=== PATIENT | female | born 1980 | race Two or more races ===

== ENCOUNTER 2016-10-10 23:00 | Emergency (ER) | payer MEDICAID ==
[~2016-10-10] VITALS: Ht 167.6 cm; Wt 86.2 kg
[2016-10-10 23:23] VITALS: BP 153/94
== END 2016-10-10 23:30 | disposition left against medical advice (07) ==
LOC: ER 23:00
DX: R05 Cough (principal); R06.02 Shortness of breath; Z53.21 Procedure and treatment not carried out due to patient leaving prior to being seen by health care provider
CPT/HCPCS: 71010

== ENCOUNTER 2016-10-11 19:48 | Emergency (ER) | payer MEDICAID ==
[~2016-10-11] VITALS: Ht 167.6 cm; Wt 86.2 kg
[2016-10-11 20:19] VITALS: BP 137/88
[2016-10-11] MEDS ORDERED: cefTRIAXone SOD 1,000 MG VL IM ONE (20:45)
[2016-10-11] MEDS ORDERED: IBUPROFEN 800 MG TAB PO ONE (20:45)
== END 2016-10-11 21:25 | disposition home or self-care (01) ==
LOC: ER 19:50
DX: J20.9 Acute bronchitis, unspecified (principal); J03.90 Acute tonsillitis, unspecified; Z98.51 Tubal ligation status; F15.10 Other stimulant abuse, uncomplicated
CPT/HCPCS: 81002; 96372; 99283; J0696

== ENCOUNTER 2016-12-06 19:58 | Emergency (ER) | payer MEDICAID ==
[~2016-12-06] VITALS: Ht 167.6 cm; Wt 82.6 kg
[2016-12-06 20:08] VITALS: BP 146/97
[2016-12-06 20:40] LABS: Hematocrit 45.3 % (36.0-46.0); Mean Corpuscular Hemoglobin 29.2 pg (28.0-32.0); Mean Corpuscular Hgb Conc. 33.2 g/dL (32.0-36.0); Mean Corpuscular Volume 88.1 fL (80.0-100.0); Mean Platelet Volume 9.4 fL (7.4-10.4); Platelet Count (auto) 257 10^3/uL (140-450); SUSPECT VIEW TRANSMISSION; White Blood Cell 23.7 10^3/uL (4.4-10.8)
[2016-12-06 20:47] LABS: Metamyelocytes % 0; Myelocytes % 0; Promyelocytes % 0; Reactive Lymphocytes 0
[2016-12-06 21:16] LABS: Potassium 4.5 mmol/L (3.5-5.1)
[2016-12-06 21:17] LABS: Albumin 3.2 g/dL (3.4-5.0); BUN/Creatinine Ratio 8.9; Bilirubin, Total 0.4 mg/dL (0.2-1.0); Calcium 8.9 mg/dL (8.5-10.1); Total Protein 7.8 g/dL (6.4-8.2)
[2016-12-06 22:12] LABS: Anisocytosis Slight; Platelet Estimate Adequate
== END 2016-12-06 23:00 | disposition left against medical advice (07) ==
LOC: ER 20:03
DX: R53.1 Weakness (principal); R51 Headache; R50.9 Fever, unspecified; Z53.21 Procedure and treatment not carried out due to patient leaving prior to being seen by health care provider
CPT/HCPCS: 36415; 36600; 80053; 82010; 82805; 83036; 85007; 85027

== ENCOUNTER 2016-12-07 06:36 | Inpatient (IN) | payer MEDICAID ==
[~2016-12-07] VITALS: Ht 167.6 cm; Wt 88.9 kg
[2016-12-07] MEDS ORDERED: SODIUM CHLORIDE 0.9% 1,000 ML IV ONE ×2 (07:11→07:30)
[2016-12-07] MEDS ORDERED: KETOROLAC TROMETH 30 MG/ML 1ML VIAL IV ONE (07:15)
[2016-12-07] MEDS ORDERED: cefTRIAXone 1GM/50ML D5W 50 ML IV ONE (07:15)
[2016-12-07] MEDS ORDERED: ONDANSETRON HCL 4 MG/2 ML VIAL IV ONE (07:15)
[2016-12-07 07:33] LABS: Basophils # (auto) 0 uL; Eosinophils # (auto) 0 uL; Eosinophils % (auto) 0.1 % (0.0-7.0); Hematocrit 39.7 % (36.0-46.0); Hemoglobin 13.6 g/dL (12.2-16.2); Lymphocytes % (auto) 5.3 % (10.0-50.0); Mean Corpuscular Hemoglobin 29.7 pg (28.0-32.0); Mean Corpuscular Hgb Conc. 34.1 g/dL (32.0-36.0); Mean Corpuscular Volume 87.1 fL (80.0-100.0); Mean Platelet Volume 9.2 fL (7.4-10.4); Monocytes # (auto) 0.7 uL; Monocytes % (auto) 3.9 % (0.0-12.0); Neutrophils # (auto) 16.7 uL; Neutrophils % (auto) 90.7 % (37.0-80.0); Platelet Count (auto) 193 10^3/uL (140-450); Red Cell Distribution Width 13.8 % (11.6-16.0); White Blood Cell 18.4 10^3/uL (4.4-10.8)
[2016-12-07] MEDS ORDERED: InsuLIN REG 1unit/0.01ml Soln (100units/ml) SC ONE (08:00)
[2016-12-07 08:01] LABS: Albumin 2.7 g/dL (3.4-5.0); Bilirubin, Total 0.5 mg/dL (0.2-1.0); Calcium 8.5 mg/dL (8.5-10.1); Potassium 3.4 mmol/L (3.5-5.1); Total Protein 6.8 g/dL (6.4-8.2)
[2016-12-07] MEDS ORDERED: VANCOMYCIN PER PHARMACY 0 MG IV SCH ×2 (08:30→13:30)
[2016-12-07] MEDS ORDERED: POTASSIUM CHL 20MEQ/100ML 100 ML IV ONE (08:30)
[2016-12-07] MEDS: VANCOMYCIN 1GM/250ML D5W 250 ML IV SCH ×2 (10:14→18:05)
[2016-12-07 11:17] LABS: Urine Bilirubin Negative (Negative); Urine Color PINK (Yellow); Urine RBC 2 /hpf (0 - 4); Urine Squamous Epithelial Cell MOD /hpf (<5); Urine Urobilinogen Normal (Negative); Urine pH 5.5 (5.0-8.0)
[2016-12-07 11:18] LABS: Urine Blood 3+ /uL (Negative); Urine Glucose 4+ mg/dL (Normal); Urine Ketone 1+ (Negative); Urine Nitrite POSITIVE (Negative)
[2016-12-07] MEDS ORDERED: ACETAMINOPHEN 325 MG TAB PO ONE ×2 (12:55→13:00)
[2016-12-07] MEDS ORDERED: NITROGLYCERIN 0.4 MG SL TAB SL PRN (13:30)
[2016-12-07] MEDS ORDERED: TEMAZEPAM 15 MG CAP PO PRN (13:30)
[2016-12-07] MEDS ORDERED: MORPHINE SULF INJ 2 MG/ML SYRINGE 1ML IV PRN (13:30)
[2016-12-07] MEDS ORDERED: DEXTROSE (50%) 50ML SYRG IV PRN (13:30)
[2016-12-07] MEDS ORDERED: POTASSIUM CHL 10 Meq TABLET PO ONE (13:30)
[2016-12-07] MEDS ORDERED: DOCUSATE SOD 100 MG CAP PO PRN (13:30)
[2016-12-07] MEDS: ONDANSETRON HCL 4 MG/2 ML VIAL IV PRN ×2 (13:41→14:28)
[2016-12-07] MEDS: MORPHINE SULF INJ 2 MG/ML SYRINGE 1ML IV PRN ×2 (13:41→19:57)
[2016-12-07] MEDS: MULTIPLE VITAMIN TAB PO SCH (13:47)
[2016-12-07] MEDS: SODIUM CHLORIDE 0.9% 1,000 ML IV SCH ×2 (13:47→16:36)
[2016-12-07] MEDS: FAMOTIDINE 20 MG TAB PO SCH ×2 (13:47→21:08)
[2016-12-07 16:00] VITALS: BP 128/77
[2016-12-07] MEDS: HYDROcodone-ACET 5/325MG TAB PO PRN (16:05)
[2016-12-07] MEDS: ACCU-CHEK COMFORT CURVE STRIP VI SCH ×2 (17:22→21:08)
[2016-12-07] MEDS: InsuLIN REG 1unit/0.01ml Soln (100units/ml) SC SCH ×2 (18:04→22:26)
[2016-12-07] MEDS: Boost Glucose Control 8 Ounces PO SCH ×2 (18:05→20:53)
[2016-12-07 20:00] VITALS: BP 100/63
[2016-12-08] VITALS: BP 121/70
[2016-12-08] MEDS: VANCOMYCIN 1GM/250ML D5W 250 ML IV SCH ×2 (01:44→09:59)
[2016-12-08] MEDS: MORPHINE SULF INJ 2 MG/ML SYRINGE 1ML IV PRN ×3 (01:45→19:28)
[2016-12-08] MEDS: SODIUM CHLORIDE 0.9% 1,000 ML IV SCH ×3 (01:55→22:45)
[2016-12-08 04:00] VITALS: BP 129/84
[2016-12-08] MEDS: ACETAMINOPHEN 325 MG TAB PO PRN ×3 (04:39→20:09)
[2016-12-08] MEDS: Boost Glucose Control 8 Ounces PO SCH ×4 (06:00→22:04)
[2016-12-08] MEDS: ACCU-CHEK COMFORT CURVE STRIP VI SCH ×4 (06:01→22:04)
[2016-12-08] MEDS: InsuLIN REG 1unit/0.01ml Soln (100units/ml) SC SCH ×4 (06:28→23:06)
[2016-12-08 06:52] LABS: Hematocrit 37.2 % (36.0-46.0); Hemoglobin 12.2 g/dL (12.2-16.2); Mean Corpuscular Hemoglobin 28.7 pg (28.0-32.0); Mean Corpuscular Hgb Conc. 32.7 g/dL (32.0-36.0); Mean Corpuscular Volume 87.6 fL (80.0-100.0); Mean Platelet Volume 9.9 fL (7.4-10.4); Platelet Count (auto) 198 10^3/uL (140-450); Red Cell Distribution Width 14.4 % (11.6-16.0); SUSPECT VIEW TRANSMISSION; White Blood Cell 17.7 10^3/uL (4.4-10.8)
[2016-12-08 07:02] LABS: Metamyelocytes % 0; Myelocytes % 0; Promyelocytes % 0; Reactive Lymphocytes 0
[2016-12-08 07:03] LABS: Calcium 7.4 mg/dL (8.5-10.1); Potassium 4.2 mmol/L (3.5-5.1)
[2016-12-08 07:06] LABS: Albumin 2.1 g/dL (3.4-5.0); BUN/Creatinine Ratio 14.9
[2016-12-08 07:09] LABS: Bilirubin, Total 0.5 mg/dL (0.2-1.0); Total Protein 6.2 g/dL (6.4-8.2)
[2016-12-08 07:46] VITALS: BP 125/80
[2016-12-08 08:21] LABS: Platelet Estimate Adequate; RBC Morphology Normal
[2016-12-08] MEDS ORDERED: cefTRIAXone 1GM/50ML D5W 50 ML IV SCH (09:00)
[2016-12-08] MEDS: MULTIPLE VITAMIN TAB PO SCH (10:00)
[2016-12-08] MEDS: FAMOTIDINE 20 MG TAB PO SCH ×2 (10:00→22:05)
[2016-12-08 10:24] LABS: Lactic Acid w/Reflex 2.6 mmol/L (0.4-2.0)
[2016-12-08 10:26] LABS: REFLEX LACTIC ACID YES OR NO NO
[2016-12-08 12:00] VITALS: BP 119/73
[2016-12-08] MEDS ORDERED: SODIUM CHLORIDE 0.9% 2,000 ML IV ONE (12:30)
[2016-12-08] MEDS: PIPERACILLIN-TAZOB 3.375GM 100 ML IV SCH ×3 (12:30→23:31)
[2016-12-08 15:59] VITALS: BP 126/78
[2016-12-08] MEDS ORDERED: InsuLIN REG 1unit/0.01ml Soln (100units/ml) ONE (17:04)
[2016-12-08] MEDS: VANCOMYCIN 1,250 MG in D5W 5% 250 ML IV SCH (17:30)
[2016-12-08 20:00] VITALS: BP 137/78
[2016-12-09] VITALS (7 sets, daily range): BP systolic 125–154; BP diastolic 79–94
[2016-12-09] MEDS: VANCOMYCIN 1,250 MG in D5W 5% 250 ML IV SCH (01:29)
[2016-12-09] MEDS: ACETAMINOPHEN 325 MG TAB PO PRN (02:29)
[2016-12-09] MEDS: PIPERACILLIN-TAZOB 3.375GM 100 ML IV SCH (05:24)
[2016-12-09] MEDS: Boost Glucose Control 8 Ounces PO SCH ×4 (05:24→21:56)
[2016-12-09 06:11] LABS: Basophils # (auto) 0 uL; Eosinophils # (auto) 0.1 uL; Eosinophils % (auto) 0.7 % (0.0-7.0); Hematocrit 35.7 % (36.0-46.0); Hemoglobin 12.1 g/dL (12.2-16.2); Lymphocytes # (auto) 1.5 uL; Lymphocytes % (auto) 11.7 % (10.0-50.0); Mean Corpuscular Hemoglobin 29.3 pg (28.0-32.0); Mean Corpuscular Hgb Conc. 33.8 g/dL (32.0-36.0); Mean Corpuscular Volume 86.7 fL (80.0-100.0); Mean Platelet Volume 9.6 fL (7.4-10.4); Monocytes # (auto) 0.8 uL; Monocytes % (auto) 5.9 % (0.0-12.0); Neutrophils # (auto) 10.4 uL; Neutrophils % (auto) 81.7 % (37.0-80.0); Platelet Count (auto) 216 10^3/uL (140-450); Red Cell Distribution Width 14.6 % (11.6-16.0); White Blood Cell 12.8 10^3/uL (4.4-10.8)
[2016-12-09] MEDS: SODIUM CHLORIDE 0.9% 1,000 ML IV SCH ×2 (06:15→15:25)
[2016-12-09] MEDS: ACCU-CHEK COMFORT CURVE STRIP VI SCH ×4 (06:15→22:01)
[2016-12-09 06:22] LABS: INR 1.13 (0.9-1.15); Partial Thromboplastin Time 32.2 sec (22.64-33.71); Prothrombin Time 12.2 sec (9.37-12.3)
[2016-12-09 06:31] LABS: Calcium 7.8 mg/dL (8.5-10.1); Magnesium 2.2 mg/dL (1.6-2.6); Potassium 3.6 mmol/L (3.5-5.1)
[2016-12-09 06:32] LABS: BUN/Creatinine Ratio 15.3
[2016-12-09] MEDS: InsuLIN REG 1unit/0.01ml Soln (100units/ml) SC SCH ×4 (07:03→22:02)
[2016-12-09] MEDS: MORPHINE SULF INJ 2 MG/ML SYRINGE 1ML IV PRN ×3 (08:50→20:48)
[2016-12-09] MEDS ORDERED: ALBUTEROL SULF 2.5 MG/0.5ML(0.5%) NEB SOLN NEB PRN (09:15)
[2016-12-09] MEDS ORDERED: IPRATROPIUM BROM 0.5 MG/2.5ML INH SOL NEB PRN (09:15)
[2016-12-09] MEDS: FAMOTIDINE 20 MG TAB PO SCH ×2 (10:00→22:01)
[2016-12-09] MEDS: LEVOFLOXACIN 500MG 100 ML IV SCH ×2 (10:00→10:15)
[2016-12-09] MEDS: MULTIPLE VITAMIN TAB PO SCH (10:00)
[2016-12-09] MEDS: HYDROcodone-ACET 5/325MG TAB PO PRN ×2 (14:42→23:52)
[2016-12-10] MEDS: MORPHINE SULF INJ 2 MG/ML SYRINGE 1ML IV PRN ×2 (01:38→08:01)
[2016-12-10 05:30] VITALS: BP 125/85
[2016-12-10 05:56] LABS: Basophils # (auto) 0 uL; Basophils % (auto) 0.4 % (0.0-2.0); Eosinophils # (auto) 0.1 uL; Eosinophils % (auto) 1.3 % (0.0-7.0); Hematocrit 35.8 % (36.0-46.0); Hemoglobin 12.1 g/dL (12.2-16.2); Lymphocytes # (auto) 2.1 uL; Mean Corpuscular Hemoglobin 29.2 pg (28.0-32.0); Mean Corpuscular Hgb Conc. 33.6 g/dL (32.0-36.0); Mean Corpuscular Volume 86.8 fL (80.0-100.0); Mean Platelet Volume 9.3 fL (7.4-10.4); Monocytes # (auto) 0.7 uL; Monocytes % (auto) 6.7 % (0.0-12.0); Neutrophils # (auto) 7.9 uL; Neutrophils % (auto) 72.6 % (37.0-80.0); Platelet Count (auto) 286 10^3/uL (140-450); Red Cell Distribution Width 15.5 % (11.6-16.0); White Blood Cell 10.9 10^3/uL (4.4-10.8)
[2016-12-10 06:12] LABS: Calcium 8.1 mg/dL (8.5-10.1)
[2016-12-10] MEDS: ACCU-CHEK COMFORT CURVE STRIP VI SCH ×2 (06:15→11:20)
[2016-12-10] MEDS: InsuLIN REG 1unit/0.01ml Soln (100units/ml) SC SCH ×2 (06:19→11:26)
[2016-12-10 06:47] LABS: BUN/Creatinine Ratio 18.9
[2016-12-10] MEDS: Boost Glucose Control 8 Ounces PO SCH (07:51)
[2016-12-10 09:00] VITALS: BP 134/89
[2016-12-10] MEDS: MULTIPLE VITAMIN TAB PO SCH (10:25)
[2016-12-10] MEDS: FAMOTIDINE 20 MG TAB PO SCH (10:25)
[2016-12-10] MEDS: LEVOFLOXACIN 500MG 100 ML IV SCH (10:25)
[2016-12-10] MEDS ORDERED: LEVO500T3 PO (11:48)
[2016-12-10] MEDS ORDERED: ALBUAER3 IN (11:48)
[2016-12-10] MEDS ORDERED: HYDR-531 PO (11:48)
[2016-12-10 12:07] VITALS: BP 135/77
[2016-12-10 12:31] VITALS: BP 135/77
== END 2016-12-10 16:11 | disposition home or self-care (01) | DRG 720 ==
LOC: ER 06:36 → INTOOBSV 06:37 → TELE 06:37 → OBSVTOIN 06:37 → DOU IN ICU 16:00 → TELE-CENTR 12-09 16:44 → UNDODISOB 12-10 13:32
PROVIDERS: ADMIT Internal Medicine; ATTEND Internal Medicine
DX: A41.9 Sepsis, unspecified organism (principal); E43 Unspecified severe protein-calorie malnutrition; E11.21 Type 2 diabetes mellitus with diabetic nephropathy; J18.9 Pneumonia, unspecified organism; E13.10 Other specified diabetes mellitus with ketoacidosis without coma; E86.0 Dehydration; E87.1 Hypo-osmolality and hyponatremia; N18.2 Chronic kidney disease, stage 2 (mild); E87.6 Hypokalemia; N10 Acute pyelonephritis; Z88.6 Allergy status to analgesic agent; Z86.32 Personal history of gestational diabetes; Z83.3 Family history of diabetes mellitus; Z98.51 Tubal ligation status; Z68.31 Body mass index [BMI] 31.0-31.9, adult
CPT/HCPCS: 36415; 36600; 71010; 71020; 71250; 74176; 76775; 80048; 80053; 80202; 81001; 82010; 82805; 82962; 83036; 83605; 83615; 83735; 84702; 85007; 85025; 85027; 85610; 85730; 87040; 87081; 87086; 87400; 93005; 94640; 96361; 96365; 96366; 96372; 96375; 99291; G0434; J0696; J1815; J1885; J1956; J2405; J2543; J3480; J7060

== ENCOUNTER 2016-12-12 01:09 | Inpatient (IN) | payer MEDICAID ==
[~2016-12-12] VITALS: Ht 167.6 cm; Wt 82.5 kg
[~2016-12-12 01:09] MED LIST: ALBUAER3 IN; HYDR-531 PO; LEVO500T3 PO
[2016-12-12 03:30] LABS: Basophils # (auto) 0 uL; Basophils % (auto) 0.2 % (0.0-2.0); Eosinophils # (auto) 0.1 uL; Eosinophils % (auto) 0.3 % (0.0-7.0); Hematocrit 39.3 % (36.0-46.0); Hemoglobin 12.9 g/dL (12.2-16.2); Lymphocytes # (auto) 1.2 uL; Lymphocytes % (auto) 5.9 % (10.0-50.0); Mean Corpuscular Hemoglobin 28.5 pg (28.0-32.0); Mean Corpuscular Hgb Conc. 32.8 g/dL (32.0-36.0); Mean Corpuscular Volume 86.8 fL (80.0-100.0); Mean Platelet Volume 7.8 fL (7.4-10.4); Monocytes # (auto) 0.7 uL; Monocytes % (auto) 3.7 % (0.0-12.0); Neutrophils # (auto) 18.1 uL; Neutrophils % (auto) 89.9 % (37.0-80.0); Platelet Count (auto) 458 10^3/uL (140-450); Red Cell Distribution Width 14.8 % (11.6-16.0); White Blood Cell 20.1 10^3/uL (4.4-10.8)
[2016-12-12 03:49] LABS: Albumin 2.7 g/dL (3.4-5.0); BUN/Creatinine Ratio 14.6; Calcium 8.7 mg/dL (8.5-10.1); Potassium 4.4 mmol/L (3.5-5.1)
[2016-12-12 03:51] LABS: Bilirubin, Total 0.4 mg/dL (0.2-1.0); Total Protein 7.9 g/dL (6.4-8.2)
[2016-12-12 04:10] LABS: Urine Bilirubin Negative (Negative); Urine Color Yellow (Yellow); Urine Nitrite Negative (Negative); Urine RBC 11 /hpf (0 - 4); Urine Squamous Epithelial Cell FEW /hpf (<5); Urine Urobilinogen Normal (Negative); Urine pH 6.5 (5.0-8.0)
[2016-12-12 04:11] LABS: Urine Blood 1+ /uL (Negative); Urine Glucose 4+ mg/dL (Normal); Urine Ketone 1+ (Negative)
[2016-12-12] MEDS ORDERED: LACTULOSE 20Gm/30ML SOLN PO ONE (06:00)
[2016-12-12] MEDS ORDERED: HYDROmorphone HCL 2 MG/ML VL IV ONE (06:00)
[2016-12-12] MEDS ORDERED: ONDANSETRON HCL 4 MG/2 ML VIAL IV ONE (06:00)
[2016-12-12] MEDS ORDERED: SODIUM CHLORIDE 0.9% 1,000 ML IV ONE (06:15)
[2016-12-12] MEDS ORDERED: cefTRIAXone 1GM/50ML D5W 50 ML IV ONE (07:00)
[2016-12-12] MEDS ORDERED: ACETAMINOPHEN 500 MG TAB PO PRN (11:15)
[2016-12-12] MEDS ORDERED: MORPHINE SULF INJ 2 MG/ML SYRINGE 1ML IV PRN (11:15)
[2016-12-12] MEDS ORDERED: DEXTROSE (50%) 50ML SYRG IV PRN (11:15)
[2016-12-12] MEDS ORDERED: NITROGLYCERIN 0.4 MG SL TAB SL PRN (11:15)
[2016-12-12] MEDS ORDERED: TEMAZEPAM 15 MG CAP PO PRN (11:15)
[2016-12-12] MEDS ORDERED: ALBUTEROL SULF 2.5 MG/0.5ML(0.5%) NEB SOLN NEB PRN (11:15)
[2016-12-12] MEDS ORDERED: PIPERACILLIN-TAZOB 3.375GM 100 ML IV ONE (11:15)
[2016-12-12] MEDS ORDERED: LORazepam 0.5 MG TAB PO PRN (11:15)
[2016-12-12] MEDS ORDERED: LACTULOSE 20Gm/30ML SOLN PO PRN (11:15)
[2016-12-12] MEDS ORDERED: AZITHROMYCIN 500MG/D5W 250ML 250 ML IV ONE (11:30)
[2016-12-12] MEDS: PIPERACILLIN-TAZOB 3.375GM 100 ML IV SCH ×2 (11:53→18:00)
[2016-12-12] MEDS: SODIUM CHLORIDE 0.9% 1,000 ML IV SCH ×2 (11:53→17:01)
[2016-12-12] MEDS: FAMOTIDINE (10MG/ML) 2ML VL IV SCH (11:53)
[2016-12-12] MEDS: MORPHINE SULF INJ 2 MG/ML SYRINGE 1ML IV PRN ×3 (12:02→17:01)
[2016-12-12 12:09] LABS: Hematocrit 36.6 % (36.0-46.0); Hemoglobin 12.3 g/dL (12.2-16.2)
[2016-12-12 12:13] LABS: INR 1.06 (0.9-1.15); Partial Thromboplastin Time 27.3 sec (22.64-33.71); Prothrombin Time 11.4 sec (9.37-12.3)
[2016-12-12] MEDS: ACCU-CHEK COMFORT CURVE STRIP VI SCH ×3 (12:25→20:00)
[2016-12-12] MEDS: ALBUTEROL SULF 2.5 MG/0.5ML(0.5%) NEB SOLN NEB SCH ×2 (12:28→17:50)
[2016-12-12] MEDS: InsuLIN REG 1unit/0.01ml Soln (100units/ml) SC SCH ×3 (12:39→20:00)
[2016-12-12 13:59] VITALS: BP 132/85
[2016-12-12] MEDS: HYDROcodone-ACET 5/325MG TAB PO PRN (18:20)
[2016-12-12 18:50] LABS: Hematocrit 35.8 % (36.0-46.0); Hemoglobin 11.8 g/dL (12.2-16.2)
[2016-12-13] MEDS: FAMOTIDINE (10MG/ML) 2ML VL IV SCH ×3 (00:07→22:53)
[2016-12-13] MEDS: ACCU-CHEK COMFORT CURVE STRIP VI SCH ×6 (00:09→20:30)
[2016-12-13] MEDS: InsuLIN REG 1unit/0.01ml Soln (100units/ml) SC SCH ×6 (00:10→20:30)
[2016-12-13] MEDS: PIPERACILLIN-TAZOB 3.375GM 100 ML IV SCH ×4 (00:12→18:49)
[2016-12-13] MEDS: SODIUM CHLORIDE 0.9% 1,000 ML IV SCH ×4 (00:28→20:28)
[2016-12-13] MEDS: ALBUTEROL SULF 2.5 MG/0.5ML(0.5%) NEB SOLN NEB SCH ×4 (00:55→18:40)
[2016-12-13 00:58] LABS: Hematocrit 37.1 % (36.0-46.0); Hemoglobin 12.2 g/dL (12.2-16.2)
[2016-12-13 04:55] LABS: Basophils # (auto) 0.1 uL; Basophils % (auto) 0.4 % (0.0-2.0); Eosinophils # (auto) 0.1 uL; Eosinophils % (auto) 0.8 % (0.0-7.0); Hematocrit 35.2 % (36.0-46.0); Hemoglobin 11.6 g/dL (12.2-16.2); Lymphocytes # (auto) 2.2 uL; Lymphocytes % (auto) 19.2 % (10.0-50.0); Mean Corpuscular Hemoglobin 28.6 pg (28.0-32.0); Mean Corpuscular Hgb Conc. 32.8 g/dL (32.0-36.0); Mean Corpuscular Volume 87.1 fL (80.0-100.0); Mean Platelet Volume 7.7 fL (7.4-10.4); Monocytes # (auto) 0.6 uL; Monocytes % (auto) 5.5 % (0.0-12.0); Neutrophils # (auto) 8.6 uL; Neutrophils % (auto) 74.1 % (37.0-80.0); Platelet Count (auto) 474 10^3/uL (140-450); Red Cell Distribution Width 14.6 % (11.6-16.0); White Blood Cell 11.6 10^3/uL (4.4-10.8)
[2016-12-13] MEDS: MORPHINE SULF INJ 2 MG/ML SYRINGE 1ML IV PRN ×4 (05:01→22:53)
[2016-12-13 05:14] LABS: Albumin 2.4 g/dL (3.4-5.0); BUN/Creatinine Ratio 13.5; Calcium 8.1 mg/dL (8.5-10.1); Potassium 3.8 mmol/L (3.5-5.1)
[2016-12-13 05:23] LABS: Bilirubin, Total 0.6 mg/dL (0.2-1.0); Total Protein 7.7 g/dL (6.4-8.2)
[2016-12-13] MEDS: HYDROcodone-ACET 5/325MG TAB PO PRN ×2 (08:30→16:30)
[2016-12-13] MEDS ORDERED: AZITHROMYCIN 500MG/D5W 250ML 250 ML IV SCH (10:00)
[2016-12-13 13:47] VITALS: BP 143/89
[2016-12-13 15:47] VITALS: BP 143/89
[2016-12-13] MEDS: PROCHLORPERAZINE EDISYLATE 5 MG/ML 2ML VIAL IV PRN (16:29)
[2016-12-13 17:00] VITALS: BP 152/95
[2016-12-13 20:00] VITALS: BP 113/71
[2016-12-13 22:00] VITALS: BP 113/71
[2016-12-14] VITALS (7 sets, daily range): BP systolic 131–146; BP diastolic 65–98
[2016-12-14] MEDS: PIPERACILLIN-TAZOB 3.375GM 100 ML IV SCH ×5 (00:21→23:39)
[2016-12-14] MEDS: ACCU-CHEK COMFORT CURVE STRIP VI SCH ×7 (00:22→23:40)
[2016-12-14] MEDS: InsuLIN REG 1unit/0.01ml Soln (100units/ml) SC SCH ×7 (00:33→23:40)
[2016-12-14] MEDS: SODIUM CHLORIDE 0.9% 1,000 ML IV SCH ×4 (03:08→23:08)
[2016-12-14] MEDS: HYDROcodone-ACET 5/325MG TAB PO PRN ×3 (04:14→21:12)
[2016-12-14 05:29] LABS: Basophils # (auto) 0 uL; Basophils % (auto) 0.3 % (0.0-2.0); Eosinophils # (auto) 0.2 uL; Eosinophils % (auto) 1.2 % (0.0-7.0); Hematocrit 36.3 % (36.0-46.0); Hemoglobin 11.8 g/dL (12.2-16.2); Lymphocytes # (auto) 2.4 uL; Lymphocytes % (auto) 18.1 % (10.0-50.0); Mean Corpuscular Hemoglobin 28.7 pg (28.0-32.0); Mean Corpuscular Hgb Conc. 32.7 g/dL (32.0-36.0); Mean Platelet Volume 8.1 fL (7.4-10.4); Monocytes # (auto) 0.7 uL; Monocytes % (auto) 5.1 % (0.0-12.0); Neutrophils # (auto) 9.9 uL; Neutrophils % (auto) 75.3 % (37.0-80.0); Platelet Count (auto) 537 10^3/uL (140-450); Red Cell Distribution Width 14.6 % (11.6-16.0); White Blood Cell 13.1 10^3/uL (4.4-10.8)
[2016-12-14] MEDS: ALBUTEROL SULF 2.5 MG/0.5ML(0.5%) NEB SOLN NEB SCH ×4 (05:48→19:28)
[2016-12-14 05:51] LABS: BUN/Creatinine Ratio 14.9; Calcium 8.4 mg/dL (8.5-10.1); Magnesium 2.3 mg/dL (1.6-2.6); Potassium 3.7 mmol/L (3.5-5.1)
[2016-12-14] MEDS: MORPHINE SULF INJ 2 MG/ML SYRINGE 1ML IV PRN (10:34)
[2016-12-14] MEDS: FAMOTIDINE (10MG/ML) 2ML VL IV SCH ×2 (11:49→23:22)
[2016-12-14] MEDS: PROCHLORPERAZINE EDISYLATE 5 MG/ML 2ML VIAL IV PRN (13:40)
[2016-12-15] MEDS: ALBUTEROL SULF 2.5 MG/0.5ML(0.5%) NEB SOLN NEB SCH ×3 (00:58→12:15)
[2016-12-15] MEDS: MORPHINE SULF INJ 2 MG/ML SYRINGE 1ML IV PRN (02:04)
[2016-12-15] MEDS: ACCU-CHEK COMFORT CURVE STRIP VI SCH ×3 (03:45→12:58)
[2016-12-15] MEDS: InsuLIN REG 1unit/0.01ml Soln (100units/ml) SC SCH ×3 (03:46→12:57)
[2016-12-15] MEDS: HYDROcodone-ACET 5/325MG TAB PO PRN (04:47)
[2016-12-15 05:00] VITALS: BP 135/84
[2016-12-15] MEDS: PIPERACILLIN-TAZOB 3.375GM 100 ML IV SCH ×2 (05:52→10:35)
[2016-12-15] MEDS: SODIUM CHLORIDE 0.9% 1,000 ML IV SCH (05:52)
[2016-12-15 06:14] LABS: Basophils # (auto) 0 uL; Basophils % (auto) 0.3 % (0.0-2.0); Eosinophils # (auto) 0.1 uL; Eosinophils % (auto) 1.2 % (0.0-7.0); Hematocrit 33.8 % (36.0-46.0); Lymphocytes # (auto) 2.4 uL; Lymphocytes % (auto) 20.2 % (10.0-50.0); Mean Corpuscular Hemoglobin 28.6 pg (28.0-32.0); Mean Corpuscular Hgb Conc. 32.5 g/dL (32.0-36.0); Mean Platelet Volume 8.3 fL (7.4-10.4); Monocytes # (auto) 0.5 uL; Neutrophils # (auto) 8.9 uL; Neutrophils % (auto) 74.3 % (37.0-80.0); Platelet Count (auto) 619 10^3/uL (140-450); Red Cell Distribution Width 14.4 % (11.6-16.0)
[2016-12-15 06:42] LABS: BUN/Creatinine Ratio 16.9; Calcium 8.8 mg/dL (8.5-10.1); Magnesium 2.4 mg/dL (1.6-2.6); Potassium 3.8 mmol/L (3.5-5.1)
[2016-12-15 08:09] VITALS: BP 129/82
[2016-12-15] MEDS: FAMOTIDINE (10MG/ML) 2ML VL IV SCH (10:35)
[2016-12-15 13:10] VITALS: BP 132/80
== END 2016-12-15 13:10 | disposition left against medical advice (07) | DRG 720 ==
LOC: ER 01:09 → TELE 01:10 → TELE-CENTR 12-13 13:25
PROVIDERS: ADMIT Internal Medicine; ATTEND Internal Medicine
DX: A41.9 Sepsis, unspecified organism (principal); K66.1 Hemoperitoneum; E44.0 Moderate protein-calorie malnutrition; E87.1 Hypo-osmolality and hyponatremia; N15.9 Renal tubulo-interstitial disease, unspecified; M54.5 Low back pain; S37.012A Minor contusion of left kidney, initial encounter; J98.11 Atelectasis; X58.XXXA Exposure to other specified factors, initial encounter; E11.65 Type 2 diabetes mellitus with hyperglycemia; R31.9 Hematuria, unspecified; K76.9 Liver disease, unspecified; Z83.3 Family history of diabetes mellitus; Z98.51 Tubal ligation status; Z88.5 Allergy status to narcotic agent; Y93.89 Activity, other specified; Y92.89 Other specified places as the place of occurrence of the external cause; Y99.8 Other external cause status; Z87.01 Personal history of pneumonia (recurrent); Z87.440 Personal history of urinary (tract) infections; Z68.29 Body mass index [BMI] 29.0-29.9, adult
CPT/HCPCS: 36415; 74176; 76705; 76775; 80048; 80053; 81001; 81025; 82962; 83036; 83605; 83690; 83735; 85014; 85018; 85025; 85610; 85652; 85730; 86141; 87040; 87081; 87086; 94640; 96361; 96365; 96367; 96375; G0434; J0696; J1815; J2405; J2543; J3490

== ENCOUNTER 2023-09-29 18:53 | Emergency (ER) | payer BC, MEDICAID ==
[~2023-09-29] VITALS: Ht 167.6 cm; Wt 75.4 kg
[~2023-09-29 18:53] MED LIST changes: -LEVO500T3 PO; +LEVO500T31 PO
[2023-09-29 20:13] LABS: Basophils # (auto) 0.1 10 ^3/uL (0-0.2); Basophils % (auto) 0.5 % (0.0-2.0); Eosinophils # (auto) 0.1 10 ^3/uL (0-0.8); Eosinophils % (auto) 0.6 % (0.0-7.0); Hematocrit 46.6 % (36.0-46.0); Hemoglobin 15.4 g/dL (12.2-16.2); Lymphocytes # (auto) 2.6 10 ^3/uL (0.4-5.4); Lymphocytes % (auto) 22.9 % (10.0-50.0); Monocytes # (auto) 0.6 10 ^3/uL (0-1.3); Monocytes % (auto) 4.9 % (0.0-12.0); Neutrophils # (auto) 8.2 10 ^3/uL (1.6-8.6); Neutrophils % (auto) 71.1 % (37.0-80.0); Nucleated Red Blood Cells % 0.1 %; Red Blood Cells 5.12 10^6/uL (4.0-5.20); Red Cell Distribution Width 13.7 % (11.8-14.3); White Blood Cell 11.5 10^3/uL (4.4-10.8)
[2023-09-29 20:22] LABS: Chloride 104 mmol/L (98-107); Potassium 4.4 mmol/L (3.5-5.1); Sodium 135 mmol/L (136-145)
[2023-09-29 20:23] LABS: Anion Gap 6 (5-15); Carbon Dioxide 25 mmol/L (20-30)
[2023-09-29 20:24] LABS: Calcium 9.7 mg/dL (8.5-10.1)
[2023-09-29 20:28] LABS: BUN/Creatinine Ratio 7.6 (10.0-20.0); Blood Urea Nitrogen 7 mg/dL (9-23); Glucose 298 mg/dL (74-106)
[2023-09-30] MEDS ORDERED: KETOROLAC TROMETH 30 MG/ML 1ML VIAL IM ONE (03:15)
[2023-09-30] MEDS ORDERED: IBUP-1455 PO ×2 (03:17→04:17)
[2023-09-30 03:57] LABS: Alanine Aminotransferase 17 U/L (7-40); Albumin 4.6 g/dL (3.2-4.8); Alkaline Phosphatase 97 U/L (46-116); Aspartate Aminotransferase 17 U/L (13-40); Bilirubin, Direct < 0.1 mg/dL (<0.3); Bilirubin, Total 0.4 mg/dL (0.2-1.0); Total Protein 7.4 g/dL (5.7-8.2)
[2023-09-30 04:37] VITALS: BP 168/79; PULSE 82; RESP 16; TEMP 98.2; O2SAT 100
== END 2023-09-30 04:39 | disposition home or self-care (01) ==
LOC: ER 18:53
DX: K80.20 Calculus of gallbladder without cholecystitis without obstruction (principal); E11.9 Type 2 diabetes mellitus without complications; F15.90 Other stimulant use, unspecified, uncomplicated; Z98.890 Other specified postprocedural states; Z88.8 Allergy status to other drugs, medicaments and biological substances; Z79.899 Other long term (current) drug therapy
CPT/HCPCS: 36415; 74176; 76705; 80048; 80076; 83690; 85025; 96372; 99285; J1885

== ENCOUNTER 2023-11-11 17:14 | Emergency (ER) | payer BC ==
[~2023-11-11] VITALS: Ht 167.6 cm; Wt 74.1 kg
[~2023-11-11 17:14] MED LIST changes: +IBUP-1455 PO
[2023-11-11 21:04] VITALS: TEMP 97.6
[2023-11-11] MEDS ORDERED: CYCL-837 PO (22:52)
[2023-11-11 23:06] VITALS: BP 153/99; PULSE 99; RESP 18; O2SAT 100
[2023-11-11] MEDS: KETOROLAC TROMETH 30 MG/ML 1ML VIAL IM ONE (23:12)
== END 2023-11-11 23:13 | disposition home or self-care (01) ==
LOC: ER 17:14
DX: M19.012 Primary osteoarthritis, left shoulder (principal); I10 Essential (primary) hypertension; E11.9 Type 2 diabetes mellitus without complications; F15.90 Other stimulant use, unspecified, uncomplicated; Z98.890 Other specified postprocedural states; Z88.8 Allergy status to other drugs, medicaments and biological substances; Z79.899 Other long term (current) drug therapy; V89.2XXA Person injured in unspecified motor-vehicle accident, traffic, initial encounter; Y93.I9 Activity, other involving external motion; Y92.89 Other specified places as the place of occurrence of the external cause; Y99.8 Other external cause status
CPT/HCPCS: 73030; 96372; 99283; J1885

== ENCOUNTER 2024-02-11 02:43 | Emergency (ER) | payer SELFPAY ==
[~2024-02-11] VITALS: Ht 167.6 cm; Wt 76.0 kg
[~2024-02-11 02:43] MED LIST changes: +ACET500T58 PO; +CICL8SOL21 TOP; +CLIN1CAP70 PO; +CYCL-837 PO
[2024-02-11 03:00] VITALS: BP 153/110; PULSE 118; RESP 16; O2SAT 99
== END 2024-02-11 10:48 | disposition left against medical advice (07) ==
LOC: ER 02:43
DX: M25.571 Pain in right ankle and joints of right foot (principal); M79.671 Pain in right foot; Z53.21 Procedure and treatment not carried out due to patient leaving prior to being seen by health care provider

== ENCOUNTER 2024-02-12 01:37 | Inpatient (IN) | payer MEDICAID ==
[~2024-02-12] VITALS: Ht 167.6 cm; Wt 78.3 kg
[2024-02-12 03:10] VITALS: O2SAT 97
[2024-02-12 03:17] LABS: Basophils # (auto) 0.1 10 ^3/uL (0-0.2); Basophils % (auto) 0.5 % (0.0-2.0); Eosinophils # (auto) 0 10 ^3/uL (0-0.8); Eosinophils % (auto) 0.4 % (0.0-7.0); Hematocrit 37.2 % (36.0-46.0); Hemoglobin 12.7 g/dL (12.2-16.2); Lymphocytes # (auto) 2.3 10 ^3/uL (0.4-5.4); Lymphocytes % (auto) 18.6 % (10.0-50.0); Mean Corpuscular Hemoglobin 29.7 pg (28.0-32.0); Mean Corpuscular Hgb Conc. 34.1 g/dL (32.0-36.0); Mean Corpuscular Volume 86.9 fL (80.0-100.0); Monocytes # (auto) 0.6 10 ^3/uL (0-1.3); Monocytes % (auto) 5.1 % (0.0-12.0); Neutrophils # (auto) 9.2 10 ^3/uL (1.6-8.6); Neutrophils % (auto) 75.4 % (37.0-80.0); Nucleated Red Blood Cells % 0.1 %; Red Blood Cells 4.28 10^6/uL (4.0-5.20); White Blood Cell 12.2 10^3/uL (4.4-10.8)
[2024-02-12] MEDS: ONDANSETRON HCL 4 MG/2 ML VIAL IV ONE (03:25)
[2024-02-12] MEDS: MORPHINE SULFATE 4 MG/ML SYR/VIAL IV ONE (03:26)
[2024-02-12] MEDS: PIPERACILLIN-TAZO 4.5GM 100 ML IV ONE (03:26)
[2024-02-12] MEDS: SODIUM CHLORIDE 0.9% 1,000 ML IV ONE ×2 (03:26→12:34)
[2024-02-12 03:42] LABS: Chloride 99 mmol/L (98-107); Potassium 3.5 mmol/L (3.5-5.1); Sodium 135 mmol/L (136-145)
[2024-02-12 03:43] LABS: Anion Gap 12 (5-15); Carbon Dioxide 24 mmol/L (20-30)
[2024-02-12 03:44] LABS: Calcium 9.1 mg/dL (8.7-10.4)
[2024-02-12 04:09] LABS: Blood Urea Nitrogen < 5 mg/dL (9-23); Glucose 409 mg/dL (74-106)
[2024-02-12] MEDS: InsuLIN REG 1unit/0.01ml Soln (100units/ml) IV ONE (04:37)
[2024-02-12] MEDS ORDERED: DOCUSATE SOD 100 MG CAP PO PRN (10:45)
[2024-02-12] MEDS ORDERED: ONDANSETRON HCL 4 MG/2 ML VIAL IV PRN (10:45)
[2024-02-12] MEDS ORDERED: HYDROcodone-ACET 5/325MG TAB PO PRN (10:45)
[2024-02-12] MEDS ORDERED: DEXTROSE (50%) 50ML SYRG IV PRN (10:45)
[2024-02-12] MEDS ORDERED: ACETAMINOPHEN 325 MG TAB PO PRN (10:45)
[2024-02-12] MEDS ORDERED: VANCOMYCIN PER PHARMACY 0 MG IV SCH (11:00)
[2024-02-12] MEDS ORDERED: VANCOMYCIN 1GM/200ML 200 ML IV ONE (11:15)
[2024-02-12] MEDS: ACCU-CHEK COMFORT CURVE STRIP VI SCH (12:29)
[2024-02-12] MEDS: InsuLIN REG 1unit/0.01ml Soln (100units/ml) SC SCH ×2 (12:34→21:28)
[2024-02-12] MEDS: CEFEPIME 2GM/50ML NS 50 ML IV SCH (12:34)
[2024-02-12 12:41] LABS: Urine Bacteria FEW /hpf (None Seen); Urine Blood TRACE /uL (Negative); Urine Clarity Clear (Clear); Urine Color Light-Yellow (Yellow); Urine Protein, UAD Negative (Negative); Urine Specific Gravity 1.047 (1.001-1.035); Urine Urobilinogen Normal (Negative); Urine WBC 10 /hpf (0 - 5); Urine pH 5.5 (5.0-9.0)
[2024-02-12] MEDS: SODIUM CHLOR 0.9% PF (SALINE LOCK) 10ML VIAL/SYR IV SCH (15:00)
[2024-02-12] MEDS: metroNIDAZOLE 500 MG TAB PO SCH (15:00)
[2024-02-12 16:28] VITALS: PULSE 96; RESP 16; O2SAT 96
[2024-02-12] MEDS: VANCOMYCIN 1GM/200ML 200 ML IV SCH (17:11)
[2024-02-12] MEDS: methylPREDNISolone SOD SUCC 40 MG/ML VL IV ONE (18:16)
[2024-02-12] MEDS: diphenhdrAMINE HCL 50 MG/1 ML VL IV ONE (18:17)
[2024-02-12] MEDS: FAMOTIDINE (10MG/ML) 2ML VL IV ONE (18:17)
[2024-02-12 21:00] VITALS: BP 127/82; PULSE 91; RESP 14; TEMP 98.6; O2SAT 98
[2024-02-13 00:36] VITALS: BP 122/79; PULSE 77; RESP 14; TEMP 98; O2SAT 98
[2024-02-13 04:48] VITALS: BP 111/67; PULSE 90; RESP 18; TEMP 98; O2SAT 98
[2024-02-13 06:55] LABS: Alanine Aminotransferase 12 U/L (7-40); Albumin 3.7 g/dL (3.2-4.8); Alkaline Phosphatase 110 U/L (46-116); Anion Gap 7 (5-15); Aspartate Aminotransferase 12 U/L (13-40); BUN/Creatinine Ratio 19.7 (10.0-20.0); Bilirubin, Total 0.2 mg/dL (0.2-1.0); Blood Urea Nitrogen 14 mg/dL (9-23); Calcium 9.2 mg/dL (8.5-10.1); Carbon Dioxide 24 mmol/L (20-30); Chloride 106 mmol/L (98-107); Glucose 312 mg/dL (74-106); Potassium 4.9 mmol/L (3.5-5.1); Sodium 137 mmol/L (136-145); Total Protein 6.5 g/dL (5.7-8.2)
[2024-02-13 08:39] LABS: Basophils # (auto) 0 10 ^3/uL (0-0.2); Basophils % (auto) 0.3 % (0.0-2.0); Eosinophils # (auto) 0 10 ^3/uL (0-0.8); Hematocrit 38.6 % (36.0-46.0); Hemoglobin 13.4 g/dL (12.2-16.2); Lymphocytes # (auto) 2.1 10 ^3/uL (0.4-5.4); Lymphocytes % (auto) 17.1 % (10.0-50.0); Mean Corpuscular Hemoglobin 30.3 pg (28.0-32.0); Mean Corpuscular Hgb Conc. 34.6 g/dL (32.0-36.0); Mean Corpuscular Volume 87.6 fL (80.0-100.0); Monocytes # (auto) 0.4 10 ^3/uL (0-1.3); Monocytes % (auto) 3.4 % (0.0-12.0); Neutrophils # (auto) 9.9 10 ^3/uL (1.6-8.6); Neutrophils % (auto) 79.2 % (37.0-80.0); Nucleated Red Blood Cells % 0.1 %; Red Blood Cells 4.41 10^6/uL (4.0-5.20); Red Cell Distribution Width 13.1 % (11.8-14.3); White Blood Cell 12.6 10^3/uL (4.4-10.8)
[2024-02-13 08:53] VITALS: BP 123/78; PULSE 79; RESP 18; TEMP 98.1; O2SAT 97
[2024-02-13 08:58] LABS: Alanine Aminotransferase 10 U/L (7-40); Albumin 3.6 g/dL (3.2-4.8); Alkaline Phosphatase 102 U/L (46-116); Aspartate Aminotransferase < 8 U/L (13-40); Bilirubin, Direct < 0.1 mg/dL (<0.3); Bilirubin, Total 0.2 mg/dL (0.2-1.0); Total Protein 6.7 g/dL (5.7-8.2)
[2024-02-13] MEDS ORDERED: DEXTROSE (50%) 50ML SYRG IV PRN (11:00)
[2024-02-13] MEDS ORDERED: VANCOMYCIN PER PHARMACY 0 MG IV SCH (11:00)
[2024-02-13] MEDS: ACCU-CHEK COMFORT CURVE STRIP VI SCH (11:18)
[2024-02-13] MEDS: InsuLIN REG 1unit/0.01ml Soln (100units/ml) SC SCH ×2 (11:18→21:52)
[2024-02-13] MEDS: INSULIN LANTUS (GLARGINE) 1 /0.01ml (100units/ml) SC ONE (11:19)
[2024-02-13] MEDS: VANCOMYCIN 1GM/200ML 200 ML IV SCH (12:29)
[2024-02-13 12:46] VITALS: BP 126/87; PULSE 78; RESP 16; TEMP 98.1; O2SAT 96
[2024-02-13] MEDS: diphenhdrAMINE HCL 50 MG/1 ML VL IV PRN (12:49)
[2024-02-13] MEDS ORDERED: ACETAMINOPHEN 325 MG TAB PO PRN (13:30)
[2024-02-13] MEDS: metroNIDAZOLE 500 MG TAB PO ONE (14:31)
[2024-02-13] MEDS: LISINOPRIL 5 MG TAB PO ONE (14:44)
[2024-02-13] MEDS: ENOXAPARIN SOD 40 MG/0.4 ML SYRINGE SC ONE (14:45)
[2024-02-13] MEDS: cefTRIAXone 2GM/50ML D5W 50 ML IV ONE (16:43)
[2024-02-13 16:48] VITALS: BP 122/76; PULSE 79; RESP 16; TEMP 98.1; O2SAT 99
[2024-02-13 21:00] VITALS: BP 97/50; PULSE 76; RESP 16; TEMP 98.3; O2SAT 98
[2024-02-13] MEDS: IBUPROFEN 400 MG TAB PO PRN (21:43)
[2024-02-13] MEDS: metroNIDAZOLE 500 MG TAB PO SCH (21:44)
[2024-02-14 01:00] VITALS: BP 95/59; PULSE 80; RESP 18; TEMP 98.4; O2SAT 95
[2024-02-14 05:00] VITALS: BP 107/58; PULSE 76; RESP 16; TEMP 97.5; O2SAT 96
[2024-02-14 05:43] LABS: Basophils # (auto) 0.1 10 ^3/uL (0-0.2); Basophils % (auto) 0.7 % (0.0-2.0); Eosinophils # (auto) 0.1 10 ^3/uL (0-0.8); Eosinophils % (auto) 1.1 % (0.0-7.0); Hematocrit 37.8 % (36.0-46.0); Hemoglobin 12.7 g/dL (12.2-16.2); Lymphocytes # (auto) 3.2 10 ^3/uL (0.4-5.4); Lymphocytes % (auto) 37.3 % (10.0-50.0); Mean Corpuscular Hemoglobin 29.4 pg (28.0-32.0); Mean Corpuscular Hgb Conc. 33.6 g/dL (32.0-36.0); Mean Corpuscular Volume 87.5 fL (80.0-100.0); Monocytes # (auto) 0.4 10 ^3/uL (0-1.3); Monocytes % (auto) 5.1 % (0.0-12.0); Neutrophils # (auto) 4.8 10 ^3/uL (1.6-8.6); Neutrophils % (auto) 55.8 % (37.0-80.0); Red Blood Cells 4.32 10^6/uL (4.0-5.20); Red Cell Distribution Width 13.5 % (11.8-14.3); White Blood Cell 8.6 10^3/uL (4.4-10.8)
[2024-02-14 06:00] LABS: INR 1.13 (0.9-1.15); Partial Thromboplastin Time 28.2 SEC (24.5-34.5); Prothrombin Time 11.9 sec (9.3-11.8)
[2024-02-14 06:19] LABS: Anion Gap 3 (5-15); Carbon Dioxide 28 mmol/L (20-30); Chloride 106 mmol/L (98-107); Sodium 137 mmol/L (136-145)
[2024-02-14 06:20] LABS: Calcium 8.6 mg/dL (8.5-10.1)
[2024-02-14 06:25] LABS: Blood Urea Nitrogen 16 mg/dL (9-23); Glucose 160 mg/dL (74-106)
[2024-02-14 06:26] LABS: Magnesium 1.7 mg/dL (1.6-2.6)
[2024-02-14 08:09] VITALS: BP 90/51; PULSE 78; RESP 16; TEMP 98.1; O2SAT 98
[2024-02-14] MEDS: LISINOPRIL 5 MG TAB PO SCH (10:00)
[2024-02-14] MEDS: ENOXAPARIN SOD 40 MG/0.4 ML SYRINGE SC SCH (10:22)
[2024-02-14] MEDS: cefTRIAXone 2GM/50ML D5W 50 ML IV SCH (10:22)
[2024-02-14] MEDS: INSULIN LANTUS (GLARGINE) 1 /0.01ml (100units/ml) SC SCH (10:24)
[2024-02-14 13:23] VITALS: BP 104/69; PULSE 77; RESP 16; TEMP 98.4; O2SAT 96
[2024-02-14] MEDS ORDERED: VANCOMYCIN 1GM/200ML 200 ML IV SCH (15:00)
[2024-02-15 09:08] LABS: Hepatitis B Surface Antigen Negative (Negative)
[2024-02-15 09:28] LABS: Hepatitis A Ab IgM Negative
[2024-02-15 09:29] LABS: Hepatitis B Core IgM Negative; Hepatitis C Antibody Negative (Negative)
== END 2024-02-14 14:58 | disposition left against medical advice (07) | DRG 720 ==
LOC: ER 01:37 → OVERFLOW 10:41 → WEST WING 17:25
PROVIDERS: ADMIT Nurse Practitioner Family; ATTEND Nurse Practitioner Family
DX: A41.9 Sepsis, unspecified organism (principal); L97.519 Non-pressure chronic ulcer of other part of right foot with unspecified severity; E11.621 Type 2 diabetes mellitus with foot ulcer; L03.115 Cellulitis of right lower limb; M86.8X7 Other osteomyelitis, ankle and foot; E11.69 Type 2 diabetes mellitus with other specified complication; I10 Essential (primary) hypertension; Z53.29 Procedure and treatment not carried out because of patient's decision for other reasons; E66.3 Overweight; F15.90 Other stimulant use, unspecified, uncomplicated; L27.0 Generalized skin eruption due to drugs and medicaments taken internally; T36.8X5A Adverse effect of other systemic antibiotics, initial encounter; Z88.5 Allergy status to narcotic agent; Z98.51 Tubal ligation status; Z82.49 Family history of ischemic heart disease and other diseases of the circulatory system; Z83.3 Family history of diabetes mellitus; Z68.27 Body mass index [BMI] 27.0-27.9, adult; Z87.891 Personal history of nicotine dependence
CPT/HCPCS: 36415; 73630; 73700; 80048; 80053; 80074; 80076; 80202; 81001; 82565; 82962; 83036; 83605; 83735; 85025; 85610; 85730; 86703; 87040; 87077; 87081; 87186; 87205; 93926; G0378; J0692; J1815; J2405; J2543; J3490

== ENCOUNTER 2024-03-10 03:24 | Emergency (ER) | payer MEDICAID ==
[~2024-03-10] VITALS: Ht 167.6 cm; Wt 81.0 kg
[2024-03-10 03:26] VITALS: BP 136/94; PULSE 89; RESP 20; O2SAT 98
== END 2024-03-10 05:16 | disposition left against medical advice (07) ==
LOC: ER 03:24
DX: M79.661 Pain in right lower leg (principal); Z53.21 Procedure and treatment not carried out due to patient leaving prior to being seen by health care provider

== ENCOUNTER 2024-06-06 19:01 | Emergency (ER) | payer MEDICAID ==
[~2024-06-06] VITALS: Ht 167.6 cm; Wt 80.0 kg
[2024-06-06] MEDS ORDERED: CEPH500C PO (20:43)
[2024-06-06 21:00] VITALS: PULSE 90; O2SAT 99
[2024-06-06] MEDS: cefTRIAXone SOD 1,000 MG VL IM ONE (22:21)
[2024-06-06 22:47] VITALS: BP 148/90; PULSE 83; RESP 16; TEMP 98.7; O2SAT 100
== END 2024-06-06 22:45 | disposition home or self-care (01) ==
LOC: ER 19:01
DX: L03.221 Cellulitis of neck (principal); C76.0 Malignant neoplasm of head, face and neck; E11.9 Type 2 diabetes mellitus without complications; I10 Essential (primary) hypertension; F15.90 Other stimulant use, unspecified, uncomplicated; Z88.5 Allergy status to narcotic agent; Z88.8 Allergy status to other drugs, medicaments and biological substances; Z79.899 Other long term (current) drug therapy; Z98.890 Other specified postprocedural states
CPT/HCPCS: 96372; 99283; J0696